=== PATIENT | female | born 1955 | race Caucasian/White ===

== ENCOUNTER → 2020-10-14 | Outpatient (CLI) | payer OTHER ==
[~2020-10-14] MED LIST: IOPAMIDOL 370 MG/ML 200 ML INFUS..BTL INJ ONE; SODIUM CHLORIDE 0.9% 100 ML ONE
== END ==
LOC: CT 13:26
PROVIDERS: ATTEND Internal Medicine
DX: I65.23 Occlusion and stenosis of bilateral carotid arteries (principal)
CPT/HCPCS: 70496; 70498; J7050; Q9967

== ENCOUNTER → 2020-10-26 | Outpatient (CLI) | payer OTHER | LOC: RAD 13:17 | PROVIDERS: ATTEND Internal Medicine | DX: J43.9 Emphysema, unspecified (principal) | CPT/HCPCS: 71046 ==

== ENCOUNTER → 2021-04-20 | Day surgery (SDC) | payer OTHER ==
[~2021-04-20] MED LIST changes: +ALENDRONATE SOD70 MG PO; +ASPIRIN81 MG PO; +AUGMENTIN 875-1 EACH PO; +BUSPIRONE HCL5 MG PO; +CITALOPRAM HBR20 MG PO; +FENTANYL CITRATE/PF 100MCG/2 ML INJ ONE; +FOLIC ACID PO; +FUROSEMIDE40 MG PO; +GABAPENTIN300 MG PO; -IOPAMIDOL 370 MG/ML 200 ML INFUS..BTL INJ ONE; +LIPITOR10 MG PO; +METOPROLOL SUCC25 MG PO; +MIDAZOLAM HCL 2 MG/2 ML VIAL ONE; +MONTELUKAST SOD10 MG PO; +OR PHACO EYE KIT ONE; +PANTOPRAZOLE SO40 MG PO; +PREDNISONE5 MG PO; +PREOP PHACO EYE KIT ONE; +PROVENTIL HFA6.7 GM INH; -SODIUM CHLORIDE 0.9% 100 ML ONE; +TIZANIDINE HCL4 M1 PO; +TRELEGY ELLIPT1 EACH INH; +ULTRACET TABLE1 EACH PO; +ZESTRIL2.5 MG PO
[2021-04-20 14:20] VITALS: BP 144/72
== END | disposition home or self-care (01) ==
LOC: OR 10:53
PROVIDERS: ATTEND Ophthalmology
DX: H25.12 Age-related nuclear cataract, left eye (principal); J44.9 Chronic obstructive pulmonary disease, unspecified; I10 Essential (primary) hypertension; M54.9 Dorsalgia, unspecified; M54.2 Cervicalgia; K21.9 Gastro-esophageal reflux disease without esophagitis; F32.A Depression, unspecified; Z88.2 Allergy status to sulfonamides; Z88.6 Allergy status to analgesic agent; Z91.041 Radiographic dye allergy status; Z01.812 Encounter for preprocedural laboratory examination; Z20.822 Contact with and (suspected) exposure to COVID-19; Z99.81 Dependence on supplemental oxygen; Z79.82 Long term (current) use of aspirin; Z79.52 Long term (current) use of systemic steroids; Z79.899 Other long term (current) drug therapy; Z87.891 Personal history of nicotine dependence
CPT/HCPCS: J2250; J3010; U0002; V2632